=== PATIENT | female | born 1960 | race Caucasian/White ===

== ENCOUNTER 2022-07-08 02:19 | Emergency (ER) | payer OTHER ==
[~2022-07-08] VITALS: Ht 157.5 cm; Wt 101.2 kg
[2022-07-08] MEDS ORDERED: BENADRYL ALLERG25 MG PO (04:31)
[2022-07-08] MEDS ORDERED: MEDROLPACK PO (04:31)
== END 2022-07-08 04:57 | disposition home or self-care (01) ==
LOC: ER 02:19
DX: T78.40XA Allergy, unspecified, initial encounter (principal)